=== PATIENT | male | born 1935 | race Caucasian/White ===

== ENCOUNTER 2016-07-13 15:52 | Inpatient (IN) | payer MEDICARE, BC ==
[~2016-07-13] VITALS: Ht 177.8 cm; Wt 116.8 kg
[2016-07-13] MEDS: DUONEB INH SCH ×2 (15:00→23:00)
[~2016-07-13 15:52] MED LIST: ACETAMINOPHEN 325 MG TAB PO PRN; ALU/MAG/SIM 30 ML UDC PO PRN; DEXTROSE 50% SYRINGE 50 ML IV PRN; GLUCAGON 1 MG VIAL IM PRN; MAG HYDROX 30 ML UDC PO PRN; POLYETHYLENE GLYCOL 17 GM PACKET PO PRN
[2016-07-13] MEDS: DOCUSATE SOD 100 MG CAP PO SCH (21:00)
[2016-07-13] MEDS: Atorvastatin 40 MG TAB PO SCH (21:00)
[2016-07-13] MEDS ORDERED: TUBERCULIN PPD 5 UNIT SYR ID.VACC ONE (21:00)
[2016-07-13] MEDS: SENNA 8.6 MG TAB PO SCH (21:00)
[2016-07-13] MEDS: TAMSULOSIN 0.4 MG CAP PO SCH (21:00)
[2016-07-14] MEDS: LEVEMIR INSULIN SUBQ SCH ×3 (08:00→18:11)
[2016-07-14] MEDS: DOCUSATE SOD 100 MG CAP PO SCH ×2 (09:00→20:46)
[2016-07-14] MEDS: Rivaroxaban 10 MG TAB PO SCH (09:00)
[2016-07-14] MEDS: amLODIPine 10 MG TAB PO SCH (09:00)
[2016-07-14] MEDS: SENNA 8.6 MG TAB PO SCH ×2 (09:00→20:46)
[2016-07-14 15:44] VITALS: BP_SYST 140; BP_SYST 142; RESP 20; TEMP 98.4; BMI 38.4
[2016-07-14] MEDS: TAMSULOSIN 0.4 MG CAP PO SCH (20:46)
[2016-07-14] MEDS: Atorvastatin 40 MG TAB PO SCH (20:46)
[2016-07-14] MEDS ORDERED: TUBERCULIN PPD 5 UNIT SYR ID.VACC SCH (21:00)
[2016-07-14] MEDS: DUONEB INH SCH (22:41)
[2016-07-15 04:30] VITALS: BP_SYST 151; RESP 20; TEMP 98.3
[2016-07-15] MEDS: DUONEB INH SCH ×3 (07:42→22:45)
[2016-07-15 10:27] VITALS: BP_SYST 151; RESP 18; TEMP 98.3
[2016-07-15] MEDS: DOCUSATE SOD 100 MG CAP PO SCH ×2 (10:35→21:06)
[2016-07-15] MEDS: amLODIPine 10 MG TAB PO SCH (10:35)
[2016-07-15] MEDS: Rivaroxaban 10 MG TAB PO SCH (10:35)
[2016-07-15] MEDS: SENNA 8.6 MG TAB PO SCH ×2 (10:35→21:06)
[2016-07-15] MEDS: LEVEMIR INSULIN SUBQ SCH ×2 (10:43→18:19)
[2016-07-15] MEDS ORDERED: BISACODYL EC 5 MG TAB PO PRN (12:00)
[2016-07-15] MEDS ORDERED: BISACODYL 10 MG SUPP RECTAL PRN (12:00)
[2016-07-15] MEDS: MAG CIT SOLN 300 ML PO PRN (13:52)
[2016-07-15 16:38] VITALS: BP_SYST 159; RESP 18; TEMP 98.4
[2016-07-15] MEDS ORDERED: SKIN TEST: READ AND RECORD XX SCH (21:00)
[2016-07-15] MEDS: TAMSULOSIN 0.4 MG CAP PO SCH (21:06)
[2016-07-15] MEDS: POLYETHYLENE GLYCOL 17 GM PACKET PO SCH (21:06)
[2016-07-15] MEDS: Atorvastatin 40 MG TAB PO SCH (21:07)
[2016-07-16 02:47] VITALS: BP_SYST 153; RESP 20; TEMP 97.7
[2016-07-16] MEDS: DUONEB INH SCH ×3 (06:26→22:59)
[2016-07-16] MEDS: LEVEMIR INSULIN SUBQ SCH ×2 (08:17→18:08)
[2016-07-16] MEDS: amLODIPine 10 MG TAB PO SCH (08:19)
[2016-07-16] MEDS: DOCUSATE SOD 100 MG CAP PO SCH ×2 (08:19→20:23)
[2016-07-16] MEDS: POLYETHYLENE GLYCOL 17 GM PACKET PO SCH ×2 (08:19→20:23)
[2016-07-16] MEDS: SENNA 8.6 MG TAB PO SCH ×2 (08:19→20:22)
[2016-07-16] MEDS: Rivaroxaban 10 MG TAB PO SCH (08:19)
[2016-07-16 09:00] VITALS: Ht 177.8 cm; Wt 116.8 kg
[2016-07-16 15:10] VITALS: BP_SYST 149; RESP 18; TEMP 98.5
[2016-07-16] MEDS ORDERED: MISSING DOSE XX ONE (15:50)
[2016-07-16 16:35] VITALS: BP_SYST 141; RESP 20; TEMP 97.9
[2016-07-16] MEDS: TAMSULOSIN 0.4 MG CAP PO SCH (20:23)
[2016-07-16] MEDS: Atorvastatin 40 MG TAB PO SCH (20:23)
[2016-07-16] MEDS: SKIN TEST: READ AND RECORD XX SCH (20:27)
[2016-07-17 04:47] VITALS: BP_SYST 140; RESP 18; TEMP 98.5
[2016-07-17] MEDS: DUONEB INH SCH ×3 (05:08→22:52)
[2016-07-17] MEDS: SENNA 8.6 MG TAB PO SCH ×2 (07:45→20:38)
[2016-07-17] MEDS: DOCUSATE SOD 100 MG CAP PO SCH ×2 (07:46→20:37)
[2016-07-17] MEDS: amLODIPine 10 MG TAB PO SCH (07:46)
[2016-07-17] MEDS: LEVEMIR INSULIN SUBQ SCH ×2 (07:46→18:08)
[2016-07-17] MEDS: POLYETHYLENE GLYCOL 17 GM PACKET PO SCH ×2 (07:46→20:37)
[2016-07-17] MEDS: Rivaroxaban 10 MG TAB PO SCH (07:46)
[2016-07-17 13:21] VITALS: BP_SYST 129; RESP 18; TEMP 98.1
[2016-07-17 16:09] VITALS: BP_SYST 140; RESP 20; TEMP 97.9
[2016-07-17] MEDS: Atorvastatin 40 MG TAB PO SCH (20:37)
[2016-07-17] MEDS: TAMSULOSIN 0.4 MG CAP PO SCH (20:37)
[2016-07-17] MEDS: PIOGLITAZONE 15 MG TAB PO SCH (21:33)
[2016-07-18 03:49] VITALS: BP_SYST 157; RESP 20; TEMP 97.8
[2016-07-18] MEDS: DUONEB INH SCH ×3 (07:07→23:00)
[2016-07-18] MEDS: POLYETHYLENE GLYCOL 17 GM PACKET PO SCH ×2 (08:37→20:59)
[2016-07-18] MEDS: DOCUSATE SOD 100 MG CAP PO SCH ×2 (08:39→20:58)
[2016-07-18] MEDS: amLODIPine 10 MG TAB PO SCH (08:39)
[2016-07-18] MEDS: PIOGLITAZONE 15 MG TAB PO SCH (08:39)
[2016-07-18] MEDS: Rivaroxaban 10 MG TAB PO SCH (08:39)
[2016-07-18] MEDS: SENNA 8.6 MG TAB PO SCH ×2 (08:39→20:59)
[2016-07-18] MEDS: LEVEMIR INSULIN SUBQ SCH ×2 (08:40→17:08)
[2016-07-18 13:55] VITALS: BP_SYST 154; RESP 18; TEMP 98.4
[2016-07-18] MEDS: Atorvastatin 40 MG TAB PO SCH (20:59)
[2016-07-18] MEDS: TAMSULOSIN 0.4 MG CAP PO SCH (20:59)
[2016-07-18 22:52] VITALS: BP_SYST 148; RESP 20; TEMP 98.3
[2016-07-19] VITALS: BP_SYST 154; RESP 20; TEMP 98.2
[2016-07-19] MEDS: DUONEB INH SCH ×3 (06:50→23:05)
[2016-07-19 07:19] VITALS: BP_SYST 162; RESP 22; TEMP 97.7
[2016-07-19] MEDS: MAG CIT SOLN 300 ML PO PRN (08:43)
[2016-07-19] MEDS: LEVEMIR INSULIN SUBQ SCH ×2 (08:44→18:12)
[2016-07-19] MEDS: DOCUSATE SOD 100 MG CAP PO SCH ×2 (08:46→20:47)
[2016-07-19] MEDS: PIOGLITAZONE 15 MG TAB PO SCH (08:46)
[2016-07-19] MEDS: Rivaroxaban 10 MG TAB PO SCH (08:46)
[2016-07-19] MEDS: SENNA 8.6 MG TAB PO SCH ×2 (08:47→20:47)
[2016-07-19] MEDS: POLYETHYLENE GLYCOL 17 GM PACKET PO SCH ×2 (08:47→20:47)
[2016-07-19] MEDS: amLODIPine 10 MG TAB PO SCH (08:47)
[2016-07-19 16:45] VITALS: BP_SYST 152; RESP 18; TEMP 97.6
[2016-07-19] MEDS: Atorvastatin 40 MG TAB PO SCH (20:47)
[2016-07-19] MEDS: TAMSULOSIN 0.4 MG CAP PO SCH (20:47)
[2016-07-19 23:46] VITALS: BP_SYST 135; TEMP 97.9
[2016-07-20] MEDS: DUONEB INH SCH ×3 (06:32→22:14)
[2016-07-20] MEDS ORDERED: LEVEMIR INSULIN SUBQ SCH (08:00)
[2016-07-20] MEDS: PIOGLITAZONE 15 MG TAB PO SCH (08:14)
[2016-07-20] MEDS: DOCUSATE SOD 100 MG CAP PO SCH ×2 (08:15→21:05)
[2016-07-20] MEDS: SENNA 8.6 MG TAB PO SCH ×2 (08:15→21:05)
[2016-07-20] MEDS: amLODIPine 10 MG TAB PO SCH (08:15)
[2016-07-20] MEDS: Rivaroxaban 10 MG TAB PO SCH (08:15)
[2016-07-20] MEDS: POLYETHYLENE GLYCOL 17 GM PACKET PO SCH ×2 (08:17→21:05)
[2016-07-20 11:22] VITALS: BP_SYST 150; RESP 20; TEMP 97.4
[2016-07-20 16:22] VITALS: BP_SYST 136; RESP 20; TEMP 97.7
[2016-07-20] MEDS: LEVEMIR INSULIN SUBQ SCH (18:22)
[2016-07-20] MEDS ORDERED: TUBERCULIN PPD 5 UNIT SYR ID.VACC ONE (21:00)
[2016-07-20] MEDS: TAMSULOSIN 0.4 MG CAP PO SCH (21:05)
[2016-07-20] MEDS: Atorvastatin 40 MG TAB PO SCH (21:05)
[2016-07-21 00:49] VITALS: BP_SYST 141; TEMP 98.4
[2016-07-21] MEDS: DUONEB INH SCH ×3 (07:00→22:46)
[2016-07-21] MEDS: LEVEMIR INSULIN SUBQ SCH ×2 (09:06→18:06)
[2016-07-21] MEDS: amLODIPine 10 MG TAB PO SCH (09:08)
[2016-07-21] MEDS: SENNA 8.6 MG TAB PO SCH ×2 (09:08→21:12)
[2016-07-21] MEDS: Rivaroxaban 10 MG TAB PO SCH (09:08)
[2016-07-21] MEDS: DOCUSATE SOD 100 MG CAP PO SCH ×2 (09:08→21:13)
[2016-07-21] MEDS: PIOGLITAZONE 15 MG TAB PO SCH (09:09)
[2016-07-21] MEDS: POLYETHYLENE GLYCOL 17 GM PACKET PO SCH ×2 (09:11→21:13)
[2016-07-21 11:52] VITALS: BP_SYST 116; RESP 20; TEMP 98.4
[2016-07-21 16:23] VITALS: BP_SYST 133; RESP 18; TEMP 98.1
[2016-07-21] MEDS ORDERED: TUBERCULIN PPD 5 UNIT SYR ID.VACC ONE (21:00)
[2016-07-21] MEDS: Atorvastatin 40 MG TAB PO SCH (21:12)
[2016-07-21] MEDS: TAMSULOSIN 0.4 MG CAP PO SCH (21:12)
[2016-07-22 01:44] VITALS: BP_SYST 150; RESP 18; TEMP 98.4
[2016-07-22] MEDS: DUONEB INH SCH ×3 (06:45→22:36)
[2016-07-22] MEDS: DOCUSATE SOD 100 MG CAP PO SCH ×2 (08:16→20:34)
[2016-07-22] MEDS: SENNA 8.6 MG TAB PO SCH ×2 (08:16→20:34)
[2016-07-22] MEDS: LEVEMIR INSULIN SUBQ SCH ×2 (08:16→18:03)
[2016-07-22] MEDS: Rivaroxaban 10 MG TAB PO SCH (08:17)
[2016-07-22] MEDS: amLODIPine 10 MG TAB PO SCH (08:17)
[2016-07-22] MEDS: PIOGLITAZONE 15 MG TAB PO SCH (08:17)
[2016-07-22] MEDS: POLYETHYLENE GLYCOL 17 GM PACKET PO SCH ×2 (08:17→20:34)
[2016-07-22 12:56] VITALS: BP_SYST 143; RESP 18; TEMP 98.1
[2016-07-22 17:02] VITALS: BP_SYST 129; TEMP 97.2
[2016-07-22] MEDS: TAMSULOSIN 0.4 MG CAP PO SCH (20:34)
[2016-07-22] MEDS: Atorvastatin 40 MG TAB PO SCH (20:34)
[2016-07-23 00:31] VITALS: BP_SYST 141; RESP 18; TEMP 97.5
[2016-07-23] MEDS: DUONEB INH SCH ×2 (07:18→15:00)
[2016-07-23 09:16] VITALS: BP_SYST 153
[2016-07-23 09:17] VITALS: RESP 20; TEMP 98.4
[2016-07-23] MEDS: amLODIPine 10 MG TAB PO SCH (09:23)
[2016-07-23] MEDS: Rivaroxaban 10 MG TAB PO SCH (09:23)
[2016-07-23] MEDS: DOCUSATE SOD 100 MG CAP PO SCH ×2 (09:23→20:23)
[2016-07-23] MEDS: POLYETHYLENE GLYCOL 17 GM PACKET PO SCH ×2 (09:23→20:23)
[2016-07-23] MEDS: PIOGLITAZONE 15 MG TAB PO SCH (09:23)
[2016-07-23] MEDS: SENNA 8.6 MG TAB PO SCH ×2 (09:23→20:23)
[2016-07-23] MEDS: LEVEMIR INSULIN SUBQ SCH ×2 (09:24→18:25)
[2016-07-23 15:50] VITALS: BP_SYST 137; RESP 18; TEMP 98.3
[2016-07-23] MEDS: Atorvastatin 40 MG TAB PO SCH (20:23)
[2016-07-23] MEDS: TAMSULOSIN 0.4 MG CAP PO SCH (20:23)
[2016-07-23] MEDS: SKIN TEST: READ AND RECORD XX SCH (20:28)
[2016-07-24 00:25] VITALS: BP_SYST 142; RESP 18; TEMP 98.1
[2016-07-24 00:26] VITALS: TEMP 98.1
[2016-07-24] MEDS: SENNA 8.6 MG TAB PO SCH ×2 (08:53→20:26)
[2016-07-24] MEDS: DOCUSATE SOD 100 MG CAP PO SCH ×2 (08:53→20:26)
[2016-07-24] MEDS: Rivaroxaban 10 MG TAB PO SCH (08:53)
[2016-07-24] MEDS: LEVEMIR INSULIN SUBQ SCH (08:53)
[2016-07-24] MEDS: POLYETHYLENE GLYCOL 17 GM PACKET PO SCH ×2 (08:54→20:26)
[2016-07-24] MEDS: amLODIPine 10 MG TAB PO SCH (08:54)
[2016-07-24] MEDS: PIOGLITAZONE 15 MG TAB PO SCH (08:55)
[2016-07-24 09:51] VITALS: BP_SYST 149; TEMP 98.2
[2016-07-24 09:52] VITALS: RESP 20
[2016-07-24] MEDS: TAMSULOSIN 0.4 MG CAP PO SCH (20:26)
[2016-07-24] MEDS: Atorvastatin 40 MG TAB PO SCH (20:26)
[2016-07-24 20:51] VITALS: BP_SYST 155; RESP 20; TEMP 97.5
[2016-07-25 05:23] VITALS: BP_SYST 151; RESP 20; TEMP 98.2
[2016-07-25] MEDS ORDERED: LEVEMIR INSULIN SUBQ SCH (08:00)
[2016-07-25] MEDS: Rivaroxaban 10 MG TAB PO SCH (08:15)
[2016-07-25] MEDS: PIOGLITAZONE 15 MG TAB PO SCH (08:15)
[2016-07-25] MEDS: amLODIPine 10 MG TAB PO SCH (08:15)
[2016-07-25] MEDS: POLYETHYLENE GLYCOL 17 GM PACKET PO SCH (08:15)
[2016-07-25] MEDS: DOCUSATE SOD 100 MG CAP PO SCH (08:15)
[2016-07-25] MEDS: SENNA 8.6 MG TAB PO SCH (08:15)
[2016-07-25 09:49] VITALS: BP_SYST 140; RESP 18; TEMP 98.1
[2016-07-25 10:50] VITALS: BP_SYST 140; RESP 18; TEMP 98.1
== END 2016-07-25 12:11 | disposition home health service (06) | DRG 560 ==
LOC: ENPENDDIS 07-14 14:32 → NF 07-14 14:32
PROVIDERS: ADMIT Internal Medicine; ATTEND Internal Medicine
DX: Z47.1 Aftercare following joint replacement surgery (principal); N17.9 Acute kidney failure, unspecified; D62 Acute posthemorrhagic anemia; Z96.652 Presence of left artificial knee joint; R26.2 Difficulty in walking, not elsewhere classified; R33.9 Retention of urine, unspecified; E11.9 Type 2 diabetes mellitus without complications; E66.01 Morbid (severe) obesity due to excess calories; M54.9 Dorsalgia, unspecified; Z68.38 Body mass index [BMI] 38.0-38.9, adult; F03.90 Unspecified dementia, unspecified severity, without behavioral disturbance, psychotic disturbance, mood disturbance, and anxiety; I12.9 Hypertensive chronic kidney disease with stage 1 through stage 4 chronic kidney disease, or unspecified chronic kidney disease; N18.9 Chronic kidney disease, unspecified
CPT/HCPCS: 36415; 80048; 82947; 83880; 85025; 86580; 94640; 94799